=== PATIENT | female | born 1960 | race Caucasian/White ===

== ENCOUNTER → 2018-06-26 08:16 | Outpatient (CLI) | payer BC, SELFPAY ==
--- NOTE | 2018-06-26 08:19 | MM_ITS ---
MM Dig screening mamm BI w/CAD ORDERING PHYSICIAN : Shelton Martinez MD PATIENT AGE: 57 years GENDER: Female COMPARISON: January 2017. October 20152013. INDICATION: ITS.REASON: SCREENING routine screening. No hormones. No new complaints. PICC line family history. Mother breast cancer postmenopausal TECHNIQUE: Standard CC and MLO images were obtained. R2 CAD reviewed. FINDINGS: Generalized fatty replacement both breasts.. Minimal fibrolinear elements with Low-density breast bilaterally. No suspicious calcification or worrisome lesions in either breast... No architectural distortion RIGHT BREAST:. Would note a new small 5 mm nodular density at inferior medial left breast... By far most likely a small benign area possibly small cyst. Given the small size & smooth margins of I believe a follow-up right mammogram in 6 months would be most feasible. If desired further evaluation of this tiny area at this time, we could we could perform 90 degrees and cc spot view along with ultrasound to further characterize. Minimal subtle vague small area density at the lateral retroareolar region on cc view remains stable since 2017. The this subtle feature Resides just at or beneath the skin and not of concern LEFT BREAST no new findings. Minimal glandular elements IMPRESSION: 1. Right Breast: Small new 5 mm nodular density inferior medial right breast. Barely appreciable and by far most likely benign . With this tiny area of nodularity follow-up right mammogram in 5-6 months would be adequate & suggested. (Alternatively if desire further evaluation of this tiny area at this time , spot views & ultrasound could be performed.) 2. Left Breast:. Stable. Follow up one year recommended BI-RADS Category: 3 Benign Finding Short Term Follow-up RECOMMENDED FOLLOW-UP: 6M -6 MONTH FOLLOW-UP Right mammogram (A letter has been sent to the patient regarding results of the study.)
== END ==
PROVIDERS: Family Provider Family Medicine; PCP Family Medicine; Visit Provider Family Medicine
DX: Z12.31 Encounter for screening mammogram for malignant neoplasm of breast (principal)
CPT/HCPCS: 77067

== ENCOUNTER → 2018-07-09 13:37 | Outpatient (CLI) | payer BC, SELFPAY ==
--- NOTE | 2018-07-09 13:43 | MM_ITS ---
MM Dig mamm DX unilat RT CAD, US breast RT complete INDICATION: Follow-up abnormal mammogram ORDERING PHYSICIAN: Shelton Martinez MD PATIENT AGE: 57 years COMPARISON: 06 26 18, 01/30/2017 TECHNIQUE: Problem-solving views performed along with right breast ultrasound FINDINGS: Spot compression views demonstrates 4 mm nodule in the inferior aspect of the right breast o'clock region. The asymmetric density in the retroareolar region may be related to fibroglandular tissue. Right breast ultrasound: 4 mm cyst at 12:00. There is some mild ductal dilatation in the retroareolar region. No suspicious abnormality. IMPRESSION: Medial nodular density has benign features and may represent a small cyst however more at 5:00 in the cyst is noted at 12:00. Probably benign BI-RADS Category: 3 Benign Finding Short Term Follow-up RECOMMENDED FOLLOW-UP: 6M - 6 MONTH FOLLOW-UP (A letter has been sent to the patient regarding results of the study.)
== END ==
PROVIDERS: Family Provider Family Medicine; PCP Family Medicine; Visit Provider Family Medicine
DX: R92.8 Other abnormal and inconclusive findings on diagnostic imaging of breast (principal)
CPT/HCPCS: 76641; 77065

== ENCOUNTER → 2018-08-02 12:46 | Outpatient (CLI) | payer BC, SELFPAY ==
--- NOTE | 2018-08-02 13:31 | XR_ITS ---
XR chest 2V HISTORY: ITS.REASON: DYSPNEA ON EXERTION ORDERING PHYSICIAN: Shelton Martinez MD PATIENT AGE: 57 years Technique: PA and lateral chest dyspnea on exertion COMPARISON: No previous chest film available only a CT abdomen which includes lung bases April 2016 FINDINGS: Lungs are clear with no active disease. Heart is normal in size. Flor, mediastinal structures satisfactory. T-spine intact chest wall rib cage unremarkable on this 2 view chest. No pneumothorax nor pleural effusion. IMPRESSION lungs clear nothing definitely acute
== END ==
PROVIDERS: Family Provider Family Medicine; PCP Family Medicine; Visit Provider Family Medicine
DX: R06.09 Other forms of dyspnea (principal)
CPT/HCPCS: 71046; 93306

== ENCOUNTER → 2019-01-01 12:54 | Outpatient (CLI) | payer BC, SELFPAY ==
--- NOTE | 2019-01-01 | US_ITS ---
US breast RT complete COMPARISON: Diagnostic right mammogram 01/01/2019 and previous ultrasound right breast 07/09/2018 HISTORY: 6 month follow-up evaluation of benign-appearing lesion right breast TECHNIQUE: Ultrasound survey right breast FINDINGS: There is a stable tiny 2 to 3 mm benign-appearing hypoechoic lesion near the nipple 12:00 position unchanged from previous exam. The remainder of the breast parenchyma shows rather homogeneous echogenicity with no definite suspicious cystic or solid lesions seen. There appears be no definite ultrasound correlation for the tiny benign-appearing nodular density at the 5:00 position on recent mammogram. IMPRESSION: Stable tiny hypoechoic lesion near the nipple, recommend the patient return to normal yearly screening mammography
--- NOTE | 2019-01-01 13:02 | MM_ITS ---
MM Dig mamm DX unilat RT CAD COMPARISON: Digital mammograms with CAD 06/26/2018 and additional problem-solving views right breast 07/09/2018 INDICATION: 6 month follow-up of suspected benign lesion right breast TECHNIQUE: Spot compression MLO and CC views and standard MLO and CC views and 90 degrees lateral view FINDINGS: The tiny benign-appearing density is stable and unchanged in appearance from the previous exams seen just deep to the nipple right breast. Otherwise the breasts is composed primarily of fat. IMPRESSION: Stable benign-appearing tiny nodular density and recommend the patient return to yearly screening mammography BI-RADS Category: 2 Benign Finding(s) RECOMMENDED FOLLOW-UP: 6M - 6 MONTH FOLLOW-UP to return to normal yearly screening schedule (A letter has been sent to the patient regarding results of the study.)
== END ==
PROVIDERS: PCP Family Medicine; Visit Provider Family Medicine
DX: R92.8 Other abnormal and inconclusive findings on diagnostic imaging of breast (principal)
CPT/HCPCS: 76641; 77065

== ENCOUNTER → 2019-07-13 08:14 | Outpatient (CLI) | payer BC, SELFPAY ==
[2019-07-13 09:22] LABS: Hemoglobin A1C 5.8 % (0.0-7.0)
[2019-07-13 09:34] LABS: Creatinine,Urine Random 111 mg/dL (20-320)
[2019-07-13 11:46] LABS: Alanine Aminotransferase 48 U/L (12-78); Albumin Level 3.6 gm/dL (3.4-5.0); Albumin/Globulin Ratio 1.1 (1.1-1.8); Alkaline Phosphatase 69 U/L (46-116); Anion Gap 11.3 mEq/L (5-15); Aspartate Amino Transferase 33 U/L (15-37); Bilirubin,Total 0.4 mg/dL (0.2-1.0); Blood Urea Nitrogen 15 mg/dL (7-18); Calcium 9.3 mg/dL (8.5-10.1); Carbon Dioxide 30 mmol/L (21.0-32.0); Chloride 104 mmol/L (98-107); Chol/HDL Ratio 4.9 (1-3.5); Cholesterol 212 mg/dL (140-200); Creatinine,Serum 1.04 mg/dL (0.55-1.02); Estimated Glomerular Filt Rate 54 ml/min (>60); GFR (African American) 66 ML/MIN (>60); Globulin 3.2 gm/dl (1.3-3.2); Glucose 114 mg/dL (74-106); HDL Cholesterol 43 mg/dL (29-89); LDL Cholesterol 142 mg/dL (0-130); Potassium 4.3 mmoL/L (3.5-5.1); Sodium 141 mmol/L (136-145); Thyroid Stimulating Hormone 2.07 uIU/ml (0.358-3.740); Total Protein,Serum 6.8 gm/dL (6.4-8.2); Triglycerides 133 mg/dL (30-200); Uric Acid 7.5 mg/dL (2.6-7.2); VLDL Cholesterol 27 mg/dL (0-40)
[2019-07-14 16:38] LABS: Microalbumin, Urine <3.0 ug/mL (Not Estab.); Vitamin B12 365 pg/mL (232-1245)
[2019-07-15 10:26] LABS: Vitamin D 25 Hydroxy 27.1 ng/mL (30.0-100.0)
== END ==
PROVIDERS: Visit Provider Family Medicine
DX: E53.8 Deficiency of other specified B group vitamins (principal); M10.9 Gout, unspecified; I10 Essential (primary) hypertension; R73.01 Impaired fasting glucose; E55.9 Vitamin D deficiency, unspecified
CPT/HCPCS: 36415; 80053; 80061; 82043; 82570; 82607; 82652; 83036; 84443; 84550

== ENCOUNTER 2019-07-15 17:02 | Outpatient (RCR) | payer BC, SELFPAY ==
--- NOTE | 2019-07-15 18:16 | HMH.PTOPEV ---
PT Outpatient Evaluation Rehab PT Outpatient Evaluation Start: 07/15/19 17:45 Freq: Status: Active Protocol: Document 07/15/19 17:46 JEFFERSON (Rec: 07/15/19 18:15 JEFFERSON [id number]) Electronically Signed By Jared Montesinos, PT 07/15/19 17:46 Outpatient Therapy Subjective History Subjective History Pt. reports w/right shoulder pn. Pn. has been occuring for the last 3 months. Pt. states that pn. began when she reached behind her at work and grabbed a bag to lift up. She reported feeling a pop and a sharp pn. Pt. has had no previous shoulder problems. Pt . states that she has trouble sleeping at night due to laying on her right side. Note done by student physical therapist José Miguel Bermudez Chief Complaint Pain Symptom Type Sharp,Burning Symptoms Relieved By Rest/Positioning Symptoms Aggravated By Physical Activity Prior Functional Limitations None Current Functional Limitations Reaching,Lifting,Housework, Dressing,Sleeping,Recreation Activity Symptom Description Constant but Variable Level of pain today (0-10) 2 Pain scale - at its best (0-10) 2 Pain scale - at its worst (0-10) 7 Cervical Eval AROM Cervical Spine Right Rotation Active WNL Range of Motion (degrees) Cervical Spine Left Rotation Active WNL Range of Motion (degrees) MMT Bilateral Deltoid (C5) 5 Normal Biceps Brachii Strength Grade 5 Normal Special Test C-Spine Foraminal Compression (Sp[place]ling) Negative Left,Negative Right Test C-Spine Compression Test Negative Left,Negative Right Shoulder/Elbow Eval Shoulder Objective Measurements Palpation Tenderness Shoulder Palpation Findings None/Normal Posture Shoulder Posture Sitting Position (L) Rounded,(R) Rounded Scapula Posture Sitting Position (L) Protracted,(R) Protracted Scapular Posture Standing Position (L) Protracted,(R) Protracted Shoulder ROM Left Shoulder Abduction Active Range of 180 Motion (degrees) Shoulder Flexion Active Range of Motion 180 (degrees) Query Text: Shoulder External Rotation Active Range 80 of Motion (degrees) Shoulder Internal Rotation Active Range 70 of Motion (degrees) full ROM shoulder exam standard left Right Shoulder ROM Limitations Pain Shoulder Abduction Acti
== END 2019-07-15 17:05 | disposition home or self-care (01) ==
LOC: PT 17:02
PROVIDERS: PCP Family Medicine; Visit Provider Family Medicine
DX: M25.511 Pain in right shoulder (principal)
CPT/HCPCS: 97110; 97163

== ENCOUNTER → 2020-01-03 18:00 | Outpatient (CLI) | payer BC, SELFPAY | PROVIDERS: PCP Family Medicine; Visit Provider Family Medicine | DX: G47.10 Hypersomnia, unspecified (principal); R06.83 Snoring; I10 Essential (primary) hypertension; E66.9 Obesity, unspecified; G47.33 Obstructive sleep apnea (adult) (pediatric) | CPT/HCPCS: G0399 ==

== ENCOUNTER → 2020-05-18 07:56 | Outpatient (CLI) | payer BC, SELFPAY ==
--- NOTE | 2020-05-18 08:00 | MM_ITS ---
PROCEDURE: MM DIG SCREENING MAMM BI W/CAD Digital Breast Tomosynthesis Included CLINICAL INDICATION: SCREENING A history of breast cancer in patient's mother and maternal 1st cousin both diagnosed after menopause. COMPARISON: [facility] MM Dig screening mamm BI w/CAD from 06/26/2018 DXRT MM Dig mamm DX unilat RT CAD from 07/09/2018 DXRT MM Dig mamm DX unilat RT CAD from 01/01/2019 TECHNIQUE: Standard CC and MLO images and 3D Tomosynthesis was obtained. R2 CAD reviewed. FINDINGS: The breasts are composed primarily of fat with very minimal scattered fibroglandular densities in each breast. There is a stable tiny benign-appearing nodular density right breast and there is a stable microcalcification left breast. There is no suspicious lesion and no suspicious microcalcifications. IMPRESSION: Fatty type breast parenchyma with no suspicious lesions seen BI-RAD Category: 2 Benign Finding(s) FOLLOW-UP: 1YR 1 Year Follow-up (A letter has been sent to the patient regarding results of the study.) Dictated by: Dr. Abdirahman Marte MD 05/18/2020 10:[address] Abdirahman Marte MD in [place] 05/18/2020 10:30
== END ==
PROVIDERS: PCP Family Medicine; Visit Provider Family Medicine
DX: Z12.31 Encounter for screening mammogram for malignant neoplasm of breast (principal)
CPT/HCPCS: 77063; 77067

== ENCOUNTER → 2021-05-18 08:04 | Outpatient (CLI) | payer BC, SELFPAY ==
--- NOTE | 2021-05-18 08:10 | MM_ITS ---
PROCEDURE: MM DIG SCREENING MAMM BI W/CAD Digital Breast Tomosynthesis Included CLINICAL INDICATION: SCREENING There is a history of breast cancer patient's mother and maternal 1st cousin both diagnosed after menopause. COMPARISON: MG DXRT MM Dig mamm DX unilat RT CAD from 07/09/2018 MG DXRT MM Dig mamm DX unilat RT CAD from 01/01/2019 MG MM DIG SCREENING MAMM BI W/CAD from 05/18/2020 TECHNIQUE: Standard CC and MLO images and 3D Tomosynthesis was obtained. R2 CAD reviewed. FINDINGS: The breasts are composed primarily of fat with mild diffuse fibroglandular densities seen throughout both breast. The findings of bilateral symmetrical. There are couple of benign-appearing microcalcifications in each breast. There is a stable tiny benign-appearing nodular density lower inner quadrant right breast. There is no new or suspicious lesion in either breast and no suspicious microcalcifications. IMPRESSION: Fibrofatty parenchyma with no suspicious lesions seen BI-RAD Category: 2 Benign Finding(s) FOLLOW-UP: 1YR 1 Year Follow-up (A letter has been sent to the patient regarding results of the study.) Dictated by: Dr. Abdirahman Marte MD 05/19/2021 16:04 Dr. Abdirahman Marte MD in [place] 05/19/2021 16:04
== END ==
PROVIDERS: PCP Family Medicine; Visit Provider Family Medicine
DX: Z12.31 Encounter for screening mammogram for malignant neoplasm of breast (principal); Z80.3 Family history of malignant neoplasm of breast
CPT/HCPCS: 77063; 77067

== ENCOUNTER → 2022-12-20 07:48 | Outpatient (CLI) | payer BC, SELFPAY ==
--- NOTE | 2022-12-20 07:51 | MM_ITS ---
PROCEDURE INFORMATION: Exam: MG Bilateral Screening 3D Mammography Exam date and time: 12/20/2022 7:53 AM Age: 62 years old Clinical indication: Screening mammogram TECHNIQUE: Imaging protocol: Bilateral Screening tomosynthesis and 2D mammography including computer-aided detection (CAD) when performed. COMPARISON: 1. MG MM DIG SCREENING MAMM BI W/CAD 05/18/2021 8:13 AM 2. MG MM DIG SCREENING MAMM BI W/CAD 05/18/2020 8:04 AM 3. MG DXRT MM Dig mamm DX unilat RT CAD 01/01/2019 1:10 PM 4. MG DXRT MM Dig mamm DX unilat RT CAD 07/09/2018 1:54 PM FINDINGS: MAMMOGRAPHY: Breast composition: There are scattered areas of fibroglandular density. Mass: None. Architectural distortion: No new or suspicious architectural distortion. Calcifications: No new or suspicious calcifications are present Asymmetric density: No new or suspicious asymmetric density is present Skin thickening: None. Axillary adenopathy: None. IMPRESSION: No mammographic evidence of malignancy. Recommend annual screening mammography unless otherwise clinically indicated. ASSESSMENT: BI-RADS category 1: Negative
== END ==
PROVIDERS: PCP Family Medicine; Visit Provider Family Medicine
DX: Z12.31 Encounter for screening mammogram for malignant neoplasm of breast (principal)
CPT/HCPCS: 77063; 77067

== ENCOUNTER 2023-08-30 16:58 | Emergency (ER) | payer BC, SELFPAY ==
[2023-08-30 16:59] VITALS: BP 131/87; PULSE 100; RESP 16; TEMP 36.5; O2SAT 99; BMI 33.9
--- NOTE | 2023-08-30 17:08 | XR_ITS ---
PROCEDURE INFORMATION: Exam: XR Left Knee Exam date and time: 08/30/2023 5:16 PM Age: 62 years old Clinical indication: Left; Patient HX: PT says felt pop and increase pain when stepping down on knee, lateral pain and swelling; Additional info: Knee pain TECHNIQUE: Imaging protocol: Radiologic exam of the left knee. Views: 3 views. COMPARISON: No relevant prior studies available. FINDINGS: Bones/joints: Small suprapatellar effusion. Small focus of subcortical cystic degenerative change medial tibial plateau. Soft tissues: Normal. IMPRESSION: No evidence of acute osseous injury
--- NOTE | 2023-08-30 18:18 | PC.NURSE ---
checked on pt let them no we currently have no beds at this time once one open ups we would move pt back to room
--- NOTE | 2023-08-30 18:49 | PC.NURSE ---
nenarn rounded on pt, updated on POC and wait time
[2023-08-30 19:57] VITALS: BP 125/77; PULSE 72; RESP 16; TEMP 36.7; O2SAT 98
--- NOTE | 2023-08-31 14:38 | HMH.EDGENADL ---
Discharge Plan Disposition Patient Disposition: Home, Self-Care Condition: Good Prescriptions Prescriptions: New indomethacin 50 mg capsule 50 mg PO TID 5 Days Qty: 15 0RF Rx Instructions: administer with food or milk No Action allopurinol 300 mg tablet 300 mg PO lisinopril-hydrochlorothiazide 20-25 mg tablet 1 tab PO omeprazole 40 mg capsule,delayed release(DR/EC) 40 mg PO nabumetone 750 mg tablet 750 mg PO loratadine 10 mg tablet 10 mg PO Patient Comments: take 1 tablet by mouth once daily cholecalciferol (vitamin D3) 125 mcg (5,000 unit) capsule 10,000 unit PO DAILY Referrals Follow up/Referrals: Shelton Martinez MD [Primary Care Provider] - See instructions Activity Restrictions/Add. Instructions Additional Instructions/Restrictions: Please return to the emergency department if you experience any new or worsening symptoms. Clinical Impressions Clinical Impression: Acute pain of left knee Discharge ED Provider: Victor M Iglesias General Adult HPI General Chief complaint: Extremity Injury, Lower Stated complaint: LT knee swelling painful Time Seen by Provider: 08/30/23 17:13 Mode of Arrival: Ambulatory Source of Information: Patient Limitations: No Limitations Description of Symptoms (Recalled from ER Triage Doc. by RN): c/o L pain and swelling for approx 1.5 weeks. Pt reports she stepped off a curb which caused pain. History of Present Illness HPI narrative: The patient presents with a chief complaint of knee pain and swelling, which has been ongoing for approximately one week. The pain significantly worsened this morning when the patient stepped up on a curb, causing a sensation of popping or tearing, and resulting in severe pain and nausea. The patient denies any twisting or unusual stepping movements during the incident. The patient reports difficulty walking and climbing stairs, and can only do so with a stiff leg. The pain is localized to the knee, with no other areas of discomfort reported. The patient has no prior history of knee issues or surgeries. The pain is predominantly on the lateral side and towards the back of the knee, with some pain extending upwards. The patient has a history of gout and is currently taking Allopurinol for management. Gout has previously affected the patient's elbow, with elevated uric acid levels. The patient denies any recent fevers or other symptoms. Related Data Home Medications Medication Instructions Recorded Confirmed allopurinol 300 mg tablet 300 mg PO 01/21/20 03/12/20 lisinopril 20 1 tab PO 01/21/20 03/12/20 mg-hydrochlorothiazide 25 mg tablet loratadine 10 mg tablet 10 mg PO 01/21/20 03/12/20 nabumetone 750 mg tablet 750 mg PO 01/21/20 03/12/20 omeprazole 40 mg capsule,delayed 40 mg PO 01/21/20 03/12/20 release cholecalciferol (vitamin D3) 125 10,000 unit PO DAILY 03/12/20 03/12/20 mcg (5,000 unit) capsule Previous Rx's Medication Instructions Recorded indomethacin 50 mg capsule 50 mg PO TID 5 days #15 caps 08/30/23 Allergies Allergy/AdvReac Type Severity Reaction Status Date / Time shellfish derived Allergy Unknown Verified 03/12/20 10:13 [facility] Disclaimer: The information contained in this section may have been updated after the patient was seen, as this information can be updated by other users. Social History Smoking Status: Unknown if ever smoked alcohol intake: never substance use type: denies use current occupational status: employed (mental health counselor) Travel in the last 8 weeks: None household members: family housing: house ROS Obtained: Yes Systems reviewed as appropriate & no additional complaints except as documented Physical Exam General General appearance: alert and in no apparent distress Head Head exam: atraumatic and normocephalic Eye Eye exam: Present normal appearance Neck Neck exam: Present normal inspection Bibiana
== END 2023-08-30 20:04 | disposition home or self-care (01) ==
PROVIDERS: Emergency Provider Emergency Medicine; PCP Family Medicine
DX: M25.562 Pain in left knee (principal); R11.0 Nausea; X50.0XXA Overexertion from strenuous movement or load, initial encounter; M10.9 Gout, unspecified
CPT/HCPCS: 73562; 99283

== ENCOUNTER 2025-01-20 13:53 | Outpatient (CLI) | payer BC, SELFPAY ==
--- NOTE | 2025-01-20 13:56 | MM_ITS ---
PROCEDURE INFORMATION: Exam: MG Bilateral Screening 3D Mammography Exam date and time: 01/20/2025 2:00 PM Age: 64 years old Clinical indication: Screening mammogram TECHNIQUE: Imaging protocol: Bilateral Screening tomosynthesis and 2D mammography including computer-aided detection (CAD) when performed. COMPARISON: 1. MG MM DIG SCREENING MAMM BI W/CAD 12/20/2022 7:53 AM 2. MG MM DIG SCREENING MAMM BI W/CAD 05/18/2021 8:13 AM 3. MG MM DIG SCREENING MAMM BI W/CAD 05/18/2020 8:04 AM 4. MG DXRT MM Dig mamm DX unilat RT CAD 01/01/2019 1:10 PM FINDINGS: MAMMOGRAPHY: Breast composition: There are scattered areas of fibroglandular density. Mass: None. Architectural distortion: No new or suspicious architectural distortion. Calcifications: No new or suspicious calcifications are present Asymmetric density: No new or suspicious asymmetric density is present Skin thickening: None. Axillary adenopathy: None. IMPRESSION: No mammographic evidence of malignancy. Recommend annual screening mammography unless otherwise clinically indicated. ASSESSMENT: BI-RADS category 1: Negative.
== END 2025-01-20 23:59 | disposition home or self-care (01) ==
LOC: RAD 13:54
PROVIDERS: PCP Family Medicine; Visit Provider Family Medicine
DX: Z12.31 Encounter for screening mammogram for malignant neoplasm of breast (principal)
CPT/HCPCS: 77063; 77067